=== PATIENT | male | born 1960 | race Asian ===

== ENCOUNTER 2024-04-13 19:54 | Emergency (ER) | payer OTHER, SELFPAY ==
[2024-04-13 19:55] VITALS: BP 163/100
--- NOTE | 2024-04-13 21:13 | ED.GENMED ---
History of Present Illness
General
Chief Complaint: Skin Surface Trauma
Time Seen by Provider: 04/13/24 20:49
History of Present Illness
History of Present Illness:
64-year-old male presents to the emergency department for evaluation of a left ring finger laceration sustained while cutting fish. Tetanus is up-to-date
Review of Systems
Review of Systems
Allergies reviewed?: Yes
All Other Systems: ROS reviewed and negative except as documented in HPI and ROS
Phy Exam
Physical Exam
Physical Exam:
GEN: Well appearing, NAD, WDWN
HEENT: Oral mucosa moist, no scleral icterus
Cardiac: Regular rate
Lung: No respiratory distress, no tachypnea
MSK: No gross deformity or injuries
Skin: Good color, no pallor or jaundice, no rashes. 1 cm laceration to the ulnar aspect of the left ring finger DIP joint, no evidence of tendon injury
Neuro: AO x3, moves all extremities freely
Psych: Calm, cooperative
Course
Vital Signs
Initial and Last Documented VS:
Initial Vital Signs
Temp Pulse Resp BP Pulse Ox
98.2 F 75 18 163/100 98
04/13/24 19:55 04/13/24 19:55 04/13/24 19:55 04/13/24 19:55 04/13/24 19:55
Last Documented Vital Signs
Temp Pulse Resp BP Pulse Ox
98.2 F 79 20 146/90 98
04/13/24 19:55 04/13/24 21:32 04/13/24 21:32 04/13/24 21:32 04/13/24 19:55
Procedures
Laceration Closure
Left Fourth Finger:
Status of Wound: clean
Size of Wound in cm: 1
Description of Wound Edges: sharp
Preparation: cleaned with soap & water
Anesthesia: 1% Lidocaine
Wound exploration: explored to base- no FB
Type of Closure: single layer closure
Skin Closure Material: 5-0 nylon
Number of sutures: 3
MDM/Problems Addressed
MDM/Problems Addressed:
Wound repaired at the bedside, tetanus up-to-date. No evidence of foreign body or tendon injury
*Critical Care Note
Total Time (30-74mins, 75-104mins- exclusive of procedures): Not Applicable
ED Attending Note
-
Portions of this chart may have been created with voice recognition software.� Occasional wrong word or��sound alike� substitutions may have occurred due to the inherent limitations of voice recognition software.
Discharge Plan
Departure
Patient Disposition: Home (Routine Discharge)
Date of Disposition: 04/13/24
Time of Disposition: 21:13
Patient with high blood pressure during this ER visit?: No
Discharge Problem:
Laceration of left ring finger
Instructions: Laceration Repair With Stitches (DC)
Referrals:
Michael Koch Md, [Other]
Michael Koch MD [Family Provider] -
Activity Restrictions/Additional Instructions:
Keep dry for 24 hours then you may wash with soap and water each day
Suture removal in 10 days
Interventions
Interventions:
*Risk Screen - Suicide Last Done: 04/13/24 19:55
*General Assessment Last Done: 04/13/24 19:55
*Neglect/Abuse Screening Last Done: 04/13/24 19:55
*ED COVID-19 Vaccine History Last Done: 04/13/24 19:55
*Nursing Disposition Last Done: 04/13/24 21:33
ED-Skin Assessment Last Done: 04/13/24 20:49
Discharge Date and Time
Discharge Date/Time: 04/13/24 21:33
Print Language: SYRIAC
[2024-04-13 21:32] VITALS: BP 146/90
== END 2024-04-13 21:33 | disposition home or self-care (01) ==
LOC: EMR 19:54
PROVIDERS: EMERGENCY PHYSICIAN Emergency Medicine; FAMILY PHYSICIAN Internal Medicine
DX: S61.215A Laceration without foreign body of left ring finger without damage to nail, initial encounter (principal); W27.8XXA Contact with other nonpowered hand tool, initial encounter; Y93.G9 Activity, other involving cooking and grilling
CPT/HCPCS: 12001; 99282